=== PATIENT | female | born 1945 | race Caucasian/White ===

== ENCOUNTER → 2018-04-16 | Outpatient (CLI) | payer MEDICARE ==
[~2018-04-16] MED LIST: ALEVE220 MG PO; ANASPAZ0.125 MG SL; ANTIVERT25 MG PO; ASTELIN30 ML NS; AZELASTINE137 MCG/0. NS; BENICAR20 MG PO; CIPROFLOXACIN500 M1 PO; FLAX SEED OIL1000 MG PO; IBUPROFEN 800800 MG PO; LOSARTAN-HCTZ1 EAC2 PO; MUCINEX DM TABL1 TA1 PO; NORCO 5-325 TA1 EACH PO; ONE-A-DAY WOMENS PO; ONGLYZA2.5 MG PO; ONGLYZA5 MG PO; PREVACID 24HR15 MG PO; PRILOSEC 20 MG20 MG PO; TYLENOL EX-STR500 M2 PO; VENTOLIN HFA 1818 GM INH; VITAMINC500 PO; ZOFRAN ODT4 MG PO; ZYRTEC 10 MG TA10 M1 PO
== END ==
LOC: M.RAD 04-14 09:28
DX: M47.814 Spondylosis without myelopathy or radiculopathy, thoracic region (principal); N63.20 Unspecified lump in the left breast, unspecified quadrant; M25.78 Osteophyte, vertebrae; M54.2 Cervicalgia; N64.4 Mastodynia; M79.602 Pain in left arm; J45.909 Unspecified asthma, uncomplicated; Z88.2 Allergy status to sulfonamides

== ENCOUNTER → 2018-08-23 | Outpatient (CLI) | payer MEDICARE ==
[2018-08-23 08:55] LABS: POTASSIUM 3.5 mmol/L (3.5-5.1)
== END ==
LOC: M.LAB 08-21 16:05
PROVIDERS: Student in an Organized Health Care Education/Training Program
DX: Z01.812 Encounter for preprocedural laboratory examination (principal); E11.9 Type 2 diabetes mellitus without complications

== ENCOUNTER → 2018-12-30 | Outpatient (CLI) | payer MEDICARE | LOC: M.RAD 13:47 | DX: N63.42 Unspecified lump in left breast, subareolar (principal); Z88.1 Allergy status to other antibiotic agents; Z88.8 Allergy status to other drugs, medicaments and biological substances; Z88.2 Allergy status to sulfonamides; Z88.0 Allergy status to penicillin; Z91.040 Latex allergy status ==

== ENCOUNTER → 2019-01-04 | Outpatient (CLI) | payer MEDICARE ==
--- NOTE | 2019-01-06 14:06 | PATH ---
[address] [address] PATHOLOGY RPT PROCEDURE Name: AIXA SINCLAIR Room: [facility] Ayala#: [id number] Admission: 01/04/19 Date of : 47 Discharge: Report #: [id number] Path Case #: [id number] [facility] Accession Number: [id number] . 01 Material submitted: . breast - LEFT BREAST NODULE. Modifiers: left . 01 Clinical history: . Left breast stereotactic biopsy for nodule . 02 Diagnosis: Left breast nodule, stereotactic biopsy: - DUCTAL ADENOCARCINOMA, LOW GRADE, WITH PROMINENT MUCINOUS FEATURES, SPANNING 7 MM. SEE COMMENT. . (SURY:jez; 01/06/2019) QMS/01/06/2019 . 02 Comment: Specimen type: Stereotactic biopsy Tumor site: Left breast Tumor quantitation: Approximately 20% of submitted tissues Histologic type: Ductal adenocarcinoma with prominent mucinous features (see comment) Histologic grade: Low grade (I of II) Tubules, nuclei and mitoses: 1, 2, 1 LVSI: Not identified Microcalcifications: Not identified Markers: Breast tumor profile pending Block: A3 . . The biopsies show multiple cores with foci of low-grade ductal adenocarcinoma, all showing prominent mucinous features and if the entire lesion shows these features it is best classified as "mucinous carcinoma". 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 Breast tumor profile studies are pending on A3 and will be the subject of an addendum report. . Reviewed with Dr. Eros Bartlett who agrees with the diagnosis. Marian (acting [facility] Breast Navigator), notified at approximately 1250 on 01/06/2019. . (SURY:jez; 01/06/2019) . 02 Electronically signed: . Adolfo Holbrook MD, [place] [address] PATHOLOGY RPT PROCEDURE Name: AIXA SINCLAIR MONALISA Room: [facility]#: [id number] Admission: 01/04/19 Date of : 47 Discharge: Report #: [id number] Path Case #: [id number] NPI- [id number] . 01 Gross description: . Received in formalin labeled "Aixa Sinclair, left breast nodule," are multiple needle cores of yellow-rudd fibrofatty tissue measuring 2.9 x 3.4 x 0.6 cm in aggregate dimensions. The tissue is submitted in its entirety in cassettes A1 through A3. The cold ischemic time is 8 minutes. The total formalin fixation time is 31 hours and 17 minutes. (TSD; 01/04/2019) TOB/TOB . 02 Pathologist provided ICD-10: D05.12 . 02 CPT . 287373 Specimen Comment: A courtesy copy of this report has been sent to Specimen Comment: [phone], , . Specimen Comment: Report sent to ,DR SMITH / DR LARES Performed at: [address], [place], [place] [id number] MD Flako Grant MD Phone: [phone] Performed at: [address] [facility] [address] [place], [place] [id number] MD Adolfo Holbrook MD Phone: [phone]
== END | disposition home or self-care (01) ==
LOC: M.RAD 01-03 13:00
DX: C50.912 Malignant neoplasm of unspecified site of left female breast (principal); E11.9 Type 2 diabetes mellitus without complications; J45.909 Unspecified asthma, uncomplicated; M10.9 Gout, unspecified; Z88.2 Allergy status to sulfonamides; Z91.040 Latex allergy status; Z88.8 Allergy status to other drugs, medicaments and biological substances; Z79.899 Other long term (current) drug therapy

== ENCOUNTER 2019-08-29 08:16 | Emergency (ER) | payer MEDICARE ==
[~2019-08-29] VITALS: Ht 162.6 cm; Wt 95.3 kg
[2019-08-29 08:30] LABS: URINE BILIRUBIN NEGATIVE (Negative); URINE BLOOD NEGATIVE (Negative); URINE CLARITY CLEAR; URINE COLOR YELLOW; URINE GLUCOSE-RANDOM NEGATIVE (Negative); URINE KETONES NEGATIVE (Negative); URINE LEUKOCYTES-REFLEX TRACE (Negative); URINE NITRITE-REFLEX NEGATIVE (Negative); URINE PROTEIN NEGATIVE (Negative); URINE UROBILINOGEN 0.2 E.U./dl (0.2-1.0)
[2019-08-29] MEDS ORDERED: OLMESARTAN MEDO40 MG PO (08:30)
[2019-08-29 08:41] LABS: BACTERIA-REFLEX 1-9 Few /HPF (None Seen); CASTS None Seen /LPF (None Seen); CRYSTALS None Seen /LPF (None Seen); MUCUS 0-3 Light strn/LPF (None Seen); SQUAMOUS 0-3 Few /LPF (0-3); URINE RBC 0-2 Rare /HPF (0-2); URINE WBC-REFLEX 0-5 Rare /HPF (0-5)
[2019-08-29 08:50] LABS: ABSOLUTE BASOPHILS 0.1 thou/uL (0.0-0.2); ABSOLUTE EOSINOPHILS 0.1 thou/uL (0.0-0.7); ABSOLUTE MONOCYTES 0.6 thou/uL (0.0-1.2); ABSOLUTE NEUTROPHILS 6.3 thou/uL (1.6-8.1); BASOPHILS 0.9 %; EOSINOPHILS 1.1 %; HEMATOCRIT 37.7 % (37.0-47.0); HEMOGLOBIN 12.5 gm/dL (12.0-15.0); LYMPHOCYTES 12.6 %; MCH 29.3 pg (26.0-34.0); MCHC 33.2 g/dL (28.0-37.0); MONOCYTES 7.3 %; NUCLEATED RBCS 0 /100WBC; PLATELET COUNT* 227 thou/uL (150-400); POLYS 78.1 %; RBC 4.29 mil/uL (4.20-5.00); RDW-CV 14.1 % (10.5-14.5); WBC 8.1 thou/uL (4.0-11.0)
[2019-08-29 08:59] LABS: CALCIUM 9.4 mg/dL (8.5-10.1); CREATININE 1.1 mg/dL (0.6-1.3)
[2019-08-29 09:04] LABS: ALBUMIN 3.7 g/dL (3.4-5.0); TOTAL BILIRUBIN 0.4 mg/dL (<0.1-1.0)
[2019-08-29] MEDS ORDERED: KEFLEX500 M1 PO (10:14)
[2019-08-29 10:35] VITALS: BP 144/71
--- NOTE | 2019-08-29 14:33 | EKG ---
[place] [address] ELECTROCARDIOGRAM REPORT Name: JASON SINCLAIR Room: [facility]#: [id number] Admission: 08/29/19 Attend Phys: Discharge: 08/29/19 Date of : 47 Report #: [id number] THIS REPORT FOR: //name// [facility] ED Test Date: 2019-08-29 Test Time: 08:44:36 Pat Name: JASON SINCLAIR Department: Room: Gender: F Squeezer Operator: : 1945 Requested By: Jori Adams Order Number: [id number] MD: David Dominguez Measurements Intervals [place] Rate: 73 P: 13 DC: 164 QRS: 0 QRSD: 99 T: 33 QT: 400 QTc: 441 Interpretive Statements Sinus rhythm Low voltage, precordial leads Compared to ECG 11/24/2014 14:02:50 No significant changes Electronically Signed On 08-29-2019 14:32:48 CLINICAL PROJECT MANAGER by David Dominguez [email or web address] <ELECTRONICALLY SIGNED> By: David Dominguez MD, [facility] 08/29/19 1432 0844 0844 David Dominguez MD, FACC /EPI
== END 2019-08-29 10:36 | disposition home or self-care (01) ==
LOC: M.ERS 08:16
PROVIDERS: Family Medicine
DX: L03.011 Cellulitis of right finger (principal); R10.32 Left lower quadrant pain; R11.2 Nausea with vomiting, unspecified; J45.909 Unspecified asthma, uncomplicated; M19.90 Unspecified osteoarthritis, unspecified site; E11.9 Type 2 diabetes mellitus without complications; K58.9 Irritable bowel syndrome, unspecified; M10.9 Gout, unspecified; Z88.6 Allergy status to analgesic agent; Z88.1 Allergy status to other antibiotic agents; Z88.2 Allergy status to sulfonamides; Z91.041 Radiographic dye allergy status; Z91.040 Latex allergy status; Z88.8 Allergy status to other drugs, medicaments and biological substances

== ENCOUNTER → 2019-09-15 | Outpatient (CLI) | payer MEDICARE ==
[~2019-09-15] MED LIST changes: +KEFLEX500 M1 PO; +OLMESARTAN MEDO40 MG PO
== END ==
LOC: M.ULTRA 09:25
DX: R10.2 Pelvic and perineal pain (principal); Z90.710 Acquired absence of both cervix and uterus; Z88.0 Allergy status to penicillin

== ENCOUNTER 2019-10-20 02:42 | Emergency (ER) | payer MEDICARE ==
[~2019-10-20] VITALS: Ht 162.6 cm; Wt 95.3 kg
[2019-10-20] MEDS ORDERED: PROAIR HFA8.5 GM INH (02:58)
[2019-10-20] MEDS ORDERED: AZELASTINE205.5 MCG/ NARES (02:59)
[2019-10-20] MEDS ORDERED: VITAMIN C500 M2 PO (02:59)
[2019-10-20] MEDS ORDERED: CHOLECALCIFEROL1 GM PO (03:00)
[2019-10-20] MEDS ORDERED: VITAMIN B-121000 MC2 PO (03:01)
[2019-10-20] MEDS ORDERED: SLEEP AID50 MG PO (03:01)
[2019-10-20] MEDS ORDERED: SUPER THERAVIT1 EACH PO (03:02)
[2019-10-20] MEDS ORDERED: BENICAR40 MG PO (03:02)
[2019-10-20] MEDS ORDERED: CULTURELLE KID1 EAC1 PO (03:02)
[2019-10-20] MEDS ORDERED: FISH OIL 1,0001 EAC9 PO (03:02)
[2019-10-20] MEDS ORDERED: PRILOSEC OTC20 MG PO (03:03)
[2019-10-20] MEDS ORDERED: OSTEO BI-FLEX1 EAC1 PO (03:03)
[2019-10-20] MEDS ORDERED: VITAMIN B-6250 MG PO (03:04)
[2019-10-20 03:41] LABS: URINE BILIRUBIN NEGATIVE (Negative); URINE BLOOD NEGATIVE (Negative); URINE CLARITY CLEAR; URINE COLOR YELLOW; URINE GLUCOSE-RANDOM NEGATIVE (Negative); URINE KETONES NEGATIVE (Negative); URINE LEUKOCYTES-REFLEX NEGATIVE (Negative); URINE NITRITE-REFLEX NEGATIVE (Negative); URINE PROTEIN NEGATIVE (Negative); URINE SPECIFIC GRAVITY <= 1.005 (1.005-1.030); URINE UROBILINOGEN 0.2 E.U./dl (0.2-1.0)
[2019-10-20] MEDS ORDERED: XANAX 0.5 MG0.5 MG PO (03:46)
[2019-10-20 03:55] VITALS: BP 125/75
== END 2019-10-20 03:55 | disposition home or self-care (01) ==
LOC: M.ERS 02:42
PROVIDERS: Personal Emergency Response Attendant
DX: K58.9 Irritable bowel syndrome, unspecified (principal); F41.9 Anxiety disorder, unspecified; E11.9 Type 2 diabetes mellitus without complications; J45.909 Unspecified asthma, uncomplicated; M10.9 Gout, unspecified; M19.90 Unspecified osteoarthritis, unspecified site; Z91.040 Latex allergy status; Z88.1 Allergy status to other antibiotic agents; Z88.2 Allergy status to sulfonamides; Z88.6 Allergy status to analgesic agent

== ENCOUNTER 2020-07-22 02:00 | Emergency (ER) | payer MEDICARE ==
[~2020-07-22] VITALS: Ht 170.2 cm; Wt 96.2 kg
[~2020-07-22 02:00] MED LIST changes: +AZELASTINE205.5 MCG/ NARES; +BENICAR40 MG PO; +CHOLECALCIFEROL1 GM PO; +CULTURELLE KID1 EAC1 PO; +FISH OIL 1,0001 EAC9 PO; +OSTEO BI-FLEX1 EAC1 PO; +PRILOSEC OTC20 MG PO; +PROAIR HFA8.5 GM INH; +SLEEP AID50 MG PO; +SUPER THERAVIT1 EACH PO; +VITAMIN B-121000 MC2 PO; +VITAMIN B-6250 MG PO; +VITAMIN C500 M2 PO; +XANAX 0.5 MG0.5 MG PO
[2020-07-22] MEDS ORDERED: PREDNISONE 10 M10 MG PO (02:36)
[2020-07-22] MEDS ORDERED: PERIDEX 0.12%473 M1 SWISH&SPIT (02:36)
[2020-07-22] MEDS ORDERED: PENICILLIN VK500 MG PO (02:36)
[2020-07-22 02:43] VITALS: BP 153/73
== END 2020-07-22 02:43 | disposition home or self-care (01) ==
LOC: M.ERS 02:00
DX: K05.319 Chronic periodontitis, localized, unspecified severity (principal); J45.909 Unspecified asthma, uncomplicated; E11.9 Type 2 diabetes mellitus without complications; M19.90 Unspecified osteoarthritis, unspecified site; Z88.1 Allergy status to other antibiotic agents; Z88.2 Allergy status to sulfonamides; Z88.8 Allergy status to other drugs, medicaments and biological substances; Z88.6 Allergy status to analgesic agent